=== PATIENT | female | born 1995 | race Caucasian/White ===

== ENCOUNTER 2024-08-11 14:48 | Emergency (ER) | payer SELFPAY ==
[~2024-08-11] VITALS: Ht 152.4 cm; Wt 61.2 kg
[2024-08-11 15:03] VITALS: O2SAT 98
[2024-08-11 15:57] LABS: BASOPHILS % 0.3 % (0.0-2.0); HEMATOCRIT. 41.3 % (36.0-48.0); MEAN CORPUSCULAR HEMOGLOBIN 32.7 pg (28.0-32.0); MEAN CORPUSCULAR HGB CONC 33.9 g/dL (31.0-37.0); MEAN CORPUSCULAR VOLUME 96.5 fL (81.0-99.0); MEAN PLATELET VOLUME 8.7 fl (7.4-10.4); MONOCYTES % 3.6 % (2.0-8.0); NEUTROPHILS % 87.1 % (40.0-76.0); PLATELET 313 x1000/uL (130-400); RED BLOOD CELL COUNT 4.28 mill/uL (4.2-5.4); RED CELL DISTRIBUTION WIDTH 12.7 % (11.6-14.6); WHITE BLOOD COUNT 14.6 x1000/uL (4.5-11.0)
[2024-08-11 16:04] LABS: CHLORIDE 104 mEq/L (98-107); POTASSIUM 4.1 mEq/L (3.5-5.1); SODIUM 139 mEq/L (136-145)
[2024-08-11 16:05] LABS: CARBON DIOXIDE 23 mEq/L (21-32)
[2024-08-11 16:06] LABS: CALCIUM 9.8 mg/dL (8.7-10.4)
[2024-08-11 16:10] LABS: CREATININE 0.7 mg/dL (0.6-1.0); GLUCOSE 98 mg/dL (70-105)
[2024-08-11 16:11] LABS: UREA NITROGEN BLOOD 14 mg/dL (9-23)
[2024-08-11 16:12] LABS: ALANINE AMINOTRANSFERASE 17 IU/L (10-49); ASPARTATE AMINOTRANSFERASE 29 IU/L (<34)
[2024-08-11 16:13] LABS: BILIRUBIN DIRECT 0.2 mg/dL (<=3.0); BILIRUBIN TOTAL 0.8 mg/dL (0.1-1.0); PROTEIN TOTAL 8.3 g/dL (6.0-8.3)
[2024-08-11] MEDS: SODIUM CHLORIDE 0.9% 1,000 ML IV ONE (17:14)
[2024-08-11] MEDS: FAMOTIDINE 20MG/2ML VIAL IV STA (17:14)
[2024-08-11] MEDS: ONDANSETRON HCL 4MG/2ML INJ IV STA (17:14)
[2024-08-11 18:17] VITALS: BP 124/68; PULSE 84; RESP 18; TEMP 36.72516; O2SAT 100
== END 2024-08-11 18:19 | disposition home or self-care (01) ==
LOC: ER 14:48
DX: T51.0X1A Toxic effect of ethanol, accidental (unintentional), initial encounter (principal); X58.XXXA Exposure to other specified factors, initial encounter
CPT/HCPCS: 80076; 80048; 83690; 85025; 36415; 96361; 96374; 96375; 99284; J3490; J2405; J7030; Z7610 ×3